=== PATIENT | female | born 1990 | race Asian ===

== ENCOUNTER 2019-09-22 06:55 | Day surgery (SDC) | payer BC ==
[2019-09-21 14:36] LABS: HEMATOCRIT 37.2 % (36.0-48.0); MCH 20.7 pg (26.0-34.0); MCHC 32.3 g/dL (31.0-37.0); MCV 64.2 fL (80.0-100.0); PLATELET COUNT 217 10x3/uL (130-400); RBC 5.79 10x6/uL (4.00-5.40); RDW 14.5 % (11.5-14.5); WBC 7.2 10x3/uL (4.8-10.8)
[2019-09-22] VITALS (10 sets, daily range): BP systolic 92–114; BP diastolic 46–68; Ht 170.2 cm; Wt 78.6 kg
[~2019-09-22] VITALS: Ht 170.2 cm; Wt 78.6 kg
[~2019-09-22 06:55] MED LIST: BUSPAR10 MG PO; BUTALB-APAP-CA1 EACH PO; BUTISOL SODIUM30 MG PO; HYDROCODONE-A1 UDTA2 PO; HYDROCODONE-APA1 TAB PO; KEFLEX500 MG PO; KLONOPIN0.5 MG PO; MELOXICAM TAB 15M PO; NEXIUM40 MG PO; OMEPRAZOLE40 MG PO; STADOL NASAL S2.5 ML NASAL; TRI-SPRINTEC1 TAB PO; ZANAFLEX4 MG PO; ZOFRAN ODT4 MG/UDTAB PO
[2019-09-22 07:59] LABS: HCG URINE NEGATIVE (NEGATIVE)
[2019-09-23] VITALS: BP 101/60
[2019-09-23 04:00] VITALS: BP 101/59
[2019-09-23 08:06] VITALS: BP 101/66
[2019-09-23 08:27] LABS: MCH 20.6 pg (26.0-34.0); MCHC 31.9 g/dL (31.0-37.0); MCV 64.6 fL (80.0-100.0); RDW 14.3 % (11.5-14.5); WBC 8.2 10x3/uL (4.8-10.8)
[2019-09-23 08:29] LABS: HEMATOCRIT 29.5 % (36.0-48.0); HEMOGLOBIN 9.4 g/dL (12-16); PLATELET COUNT 163 10x3/uL (130-400); RBC 4.57 10x6/uL (4.00-5.40)
[2019-09-23] MEDS ORDERED: PERCOCET 10-321 EAC1 PO (08:51)
[2019-09-23] MEDS ORDERED: ECOTRIN325 MG PO (08:52)
[2019-09-23] MEDS ORDERED: ATARAX 25 MG TA25 MG PO (08:55)
[2019-09-23 12:44] VITALS: BP 99/61
--- NOTE | 2019-10-04 15:11 | OP ---
PATIENT NAME: VICTORINA DUARTE MEDICAL RECORD: [id number] :89 LOCATION:[facility] ADMISSION DATE: SURGEON: MARTELL SHEPARD MD DATE OF OPERATION: 09/22/2019 PREOPERATIVE DIAGNOSIS: Anterior cruciate ligament tear of the right knee. POSTOPERATIVE DIAGNOSIS: Anterior cruciate ligament tear of the right knee. PROCEDURE: Arthroscopic allograft anterior cruciate ligament reconstruction. SURGEON: Martell Shepard MD SUPERVISOR STOCK RANCH: nAdrea Scott. INTRAOPERATIVE COMPLICATIONS: None. SUMMARY OF PATHOLOGIC FINDINGS: The patient was found to have a complete tear of the ACL, which had partially adhered to the PCL. Unfortunately, the patient had absolutely no chondral defect. She had no evidence of meniscal tearing. She had no patellofemoral deficiency. IMPLANT USED: Precut 10-mm allograft held in place with the Arthrex TightRope suspension system. OPERATIVE SUMMARY IN DETAIL: After obtaining the appropriate preoperative orthopedic surgery consent as well as anesthetic consultation, evaluation and clearance, the patient was brought to the operating room and placed on the operating table in supine position. After adequate general laryngeal mask airway was administered, the patient was held firmly to the operating table using the vacuum pack suction system. Right lower extremity was then prepped and draped in routine sterile fashion. At this point, the appropriate intraoperative timeout was taken and agreed upon by all. Leg was elevated and exsanguinated, tourniquet inflated to 350 mmHg. Routine inferolateral portal was established followed by superomedial and inferomedial portal. Diagnostic arthroscopy showed the patient to have a complete anterior cruciate ligament tear with adhesions to the posterior cruciate ligament. A 5-0 resector was utilized to completely debride the patient's residual anterior cruciate ligament stump. Medial and lateral menisci were intact without evidence of chondromalacia. Notchplasty was performed for this young female with type-A notch. Having completed this, the tibial tunnel was created with an 11-mm reamer. Following this, the guide was utilized to place the spade tip drill in the appropriate position, which was driven bicortically and out the skin. The 11-mm low profile reamer was then deployed to create a socket of approximately 35-mm. Having completed this, the passing suture was deployed using the Beath tip spade tip pin and this was then utilized to pull the anterior cruciate ligament allograft in the appropriate position. Good position and placement was achieved on both the distal femur and proximal tibial aspect. The Arthrex TightRope was utilized to pull the position into the appropriate position. The knee was ranged several times to seat the graft. The graft was then affixed distally using the Arthrex post in a bicortical fashion through the tibia. Having completed the final seating and placement of the graft, the knee was taken through range of motion and found to be stable. The preoperative pivot shift was no longer present. Wounds were irrigated and closed in the usual fashion by Andrea Scott. Sterile dressings were applied. The patient was OPERATIVE REPORT [id number] VICTORINA DUARTE awakened and taken to the recovery room in stable condition. All final needle and sponge counts were correct. TRANSINT:[id number] Voice Confirmation ID: [id number] DOCUMENT ID: [id number] MARTELL SHEPARD MD at 1511 CC: [id number] DICTATION DATE: 10/04/19821 [employer]ATIONAL [employer]ARD MEMBER: 10/04/19 [id number] 09/23/[address] [id number]
== END 2019-09-23 14:30 | disposition home or self-care (01) ==
LOC: D.MS 06:55 → D.OPS 06:55 → D.PAN 09:00 → D.OPS 09:00 → D.MS 11:09 → D.OPS 16:15 → D.PAN 16:15 → D.OPS 09-23 14:30
PROVIDERS: Anesthesiology; ATTEND Orthopaedic Surgery
DX: S83.511A Sprain of anterior cruciate ligament of right knee, initial encounter (principal); X58.XXXA Exposure to other specified factors, initial encounter